=== PATIENT | male | born 1940 | race Caucasian/White ===

== ENCOUNTER → 2018-01-29 09:49 | Day surgery (SDC) | payer MEDICARE ==
[~2018-01-29 09:49] MED LIST: Diazepam TAB(*) 5 MG ONE; Heparin 2 UNITS/ML IVPREMIX* 2,000 ML IV ONE; Heparin(*) 1000 UNIT/ML 10 ML VIAL CATH LAB IV ONE; Iohexol 350 (CONTRAST) 200 ML MDV IV ONE; Lidocaine 1%* 5 ML VIAL ONE; Midazolam* 1 MG/ML 10 ML VIAL (10 MG) ONE; NS 0.9% 1000 ML* 1,000 ML IV SCH; Nitroglycerin TAB 0.4 MG* 0.4 MG TAB ONE; VERAPAMIL 2.5 MG/ML 2 ML VIAL ** 5 mg/2 ml ONE; fentaNYL* 50 MCG/ML 2 ML VIAL (100 MCG VIAL) ONE; nitroGLYCERIN DRIP* 0 MCG/0 ML BTL ONE
[2018-01-29 10:46] LABS: ABS Basophils 0.1 10^3/ul (0-0.2); ABS Eosinophils 0.3 10^3/ul (0-0.6); ABS Lymphocytes 1.8 10^3/ul (1.0-4.8); ABS Monocytes 0.6 10^3/ul (0-0.8); ABS Neutrophils 5.3 10^3/ul (1.5-7.7); ABS Nucleated RBC 0 10^3/ul; Eosinophil % 4.2 % (0-6); Hematocrit 42 % (42-52); Lymphocyte % 22.2 % (25-47); Mean Corpuscular HGB Conc 34 g/dl (31-36); Mean Corpuscular Hemoglobin 30 pg (27-31); Mean Corpuscular Volume 88 fL (80-94); Mean Platelet Volume 7.8 um3 (7.4-10.4); Nucleated Red Blood Cells % 0; Platelet Count 202 10^3/ul (150-450); Red Blood Count 4.72 10^6/ul (4.00-5.40); Red Cell Distribution Width 15 % (10.5-15); White Blood Count 8.2 10^3/ul (3.5-10.8)
[2018-01-29 10:59] LABS: INR 1.06 (0.77-1.02)
[2018-01-29 15:06] VITALS: BP 167/77
--- NOTE | 2018-01-30 02:29 | CATH ---
CC: Dr. Jennifer Diaz; Dr. Rakesh Miles.* CARDIAC CATHETERIZATION REPORT: DATE OF PROCEDURE: 01/29/18 - [facility] CATH PROCEDURE: Right heart catheterization, coronary angiography. INDICATION: Aortic stenosis. The patient is a 77-year-old gentleman with a history of aortic stenosis. The patient was recently diagnosed with chronic atrial fibrillation. A recent echocardiogram showed that his aortic stenosis is now severe. He has increased shortness of breath, aortic valve evaluation was recommended. DESCRIPTION OF PROCEDURE: The patient was brought to the cardiac catheterization lab in a fasting state. Informed consent had been obtained prior to the procedure. All labs were reviewed. His right radial wrist area and antecubital area were prepped and draped in usual fashion. 1% lidocaine was used for local anesthesia. The antecubital vein already had a previously existing IV. A guidewire was placed over the guidewire. A 5-Zimbabwean sheath introducer was placed. The patient underwent a right heart catheterization including multiple pressures in his right sided circulation. The right radial artery was entered by a modified Seldinger technique and a guidewire was placed , over the guidewire a 6-Zimbabwean hydrophilic sheath was placed. The patient underwent coronary angiography using a 6-[place] Ter[employer] View [place] 3.5 catheter was used to engage the left main artery and AR 1 catheter was used to engage the right coronary artery. At the end of the procedure, all the sheaths and catheters were removed. The patient tolerated the procedure well, no complications. A total of 100 cc of Omnipaque dye was used. A total of 14 minutes of fluoro time was used. FINDINGS: 1. Hemodynamics. Right atrial pressure with a mean of 9, right ventricular pressure of 32/2 with end diastolic pressure, a pulmonary artery pressure of 32/ 17, central aortic pressure of 140/66 with a mean of 94. 2. Coronary arteries, left main was normal inside, it had mild calcification, bifurcating the LAD and circumflex, there is no evidence of stenosis. 3. Left anterior descending artery: The LAD was normal in size. It gave off 2 diagonal vessels. There is mild coronary artery disease in the proximal LAD, the mid LAD had a 50% stenosis. The diagonal vessels had no evidence of disease. 4. Left circumflex artery. The circumflex artery was normal in size. It gave up 3 obtuse marginal branches and the PDA, it was a dominant vessel. There was mild calcification. There was no evidence of coronary artery disease in the obtuse marginal vessels. The distal left circumflex artery had a 60% stenosis before the PDA. 5. The right coronary artery, the RCA was a small non dominant vessel. IMPRESSION: 1. Normal right heart catheterization. 2. Mild coronary artery disease with 50% stenosis of the mid LAD and a 60% stenosis of the distal left circumflex artery just before the PDA. 3. Successful radial artery catheterization. RECOMMENDATION: The patient was reevaluated for aortic valve replacement. [id number]/[facility] #: [id number] [facility]
== END | disposition home or self-care (01) ==
LOC: CHICATH 09:49
PROVIDERS: ATTEND Specialist
DX: I35.0 Nonrheumatic aortic (valve) stenosis (principal); I25.10 Atherosclerotic heart disease of native coronary artery without angina pectoris; I48.4 Atypical atrial flutter; I10 Essential (primary) hypertension; R06.02 Shortness of breath; J44.9 Chronic obstructive pulmonary disease, unspecified; Z79.01 Long term (current) use of anticoagulants; Z85.828 Personal history of other malignant neoplasm of skin
CPT/HCPCS: 36415; 80048; 85025; 85610; 93456; 99156; 99157; A9270-GY; C1887; J1644; J2250; J3010

== ENCOUNTER 2020-08-20 04:45 | Inpatient (IN) ==
[2020-08-20] MEDS ORDERED: NS 0.9% 1000 ml BAG 1,000 ML IV ONE (06:16)
[2020-08-20 06:45] LABS: ABS Lymphocytes 1.1 10^3/ul (1.0-4.8); ABS Monocytes 1.3 10^3/ul (0-0.8); Eosinophil % 0.1 %; Hematocrit 41 % (42-52); Hemoglobin 13.7 g/dL (14.0-18.0); Lymphocyte % 8.5 %; Mean Corpuscular HGB Conc 33 g/dL (31-36); Mean Corpuscular Hemoglobin 30 pg (27-31); Mean Corpuscular Volume 90 fL (80-94); Mean Platelet Volume 7.9 fL (7.4-10.4); Platelet Count 158 10^3/uL (150-450); Red Blood Count 4.56 10^6 /uL (4.18-5.48); Red Cell Distribution Width 15 % (10-15); White Blood Count 13.4 10^3/uL (3.5-10.8)
[2020-08-20 06:52] LABS: INR 1.34 (0.82-1.09)
[2020-08-20 07:02] LABS: ALT 20 U/L (7-52); AST 26 U/L (13-39); Albumin 3.8 g/dL (3.2-5.2); Albumin/Globulin Ratio 1.2 (1-3); Alkaline Phosphatase 83 U/L (34-104); Anion Gap 9 mmol/L (2-11); BUN/Creatinine Ratio 17.9 (8-20); Blood Urea Nitrogen 19 mg/dL (6-24); C Reactive Protein 97.68 mg/L (<8.01); CO2 Carbon Dioxide 24 mmol/L (22-32); Calcium 9.1 mg/dL (8.6-10.3); Chloride 98 mmol/L (101-111); Creatine Kinase 601 U/L (10-223); EGFR African American 81.1 (>60); EGFR Non-African American 67.1 (>60); Globulin 3.2 g/dL (2-4); Glucose 210 mg/dL (70-100); Magnesium 1.5 mg/dL (1.9-2.7); Sodium 131 mmol/L (135-145)
[2020-08-20 07:26] LABS: Troponin I 0.04 ng/mL (<0.03)
[2020-08-20] MEDS ORDERED: Magnesium Sulfate 2 gm BAG 2 GM/50 ML BAG IVPB ONE (07:45)
[2020-08-20 07:50] LABS: TSH Ultra Thyroid Stim Horm 2.24 mcIU/mL (0.34-5.60)
[2020-08-20 09:05] LABS: Urine Appearance Clear; Urine Bilirubin Negative (Negative); Urine Blood Negative (Negative); Urine Color Amber; Urine Glucose 1+(50 mg/dL) (Negative); Urine Ketones Trace (Negative); Urine Nitrite Negative (Negative); Urine Protein 1+(30 mg/dL) (Negative); Urine Specific Gravity 1.028 (1.010-1.030); Urine Urobilinogen Negative (Negative)
[2020-08-20 09:18] LABS: Urine Bacteria Absent (Absent); Urine Red Blood Cell Trace(0-2/hpf) (Absent); Urine White Blood Cell Trace(0-5/hpf) (Absent)
[2020-08-20 09:30] LABS: Activated Partial Thrombo Time 25.5 seconds (26.0-38.0)
[2020-08-20] MEDS ORDERED: Albuterol HFA INHALER 8 gm MDI INH PRN (10:07)
[2020-08-20 10:36] LABS: Erythrocyte Sed Rate 36 mm/Hr (0-19)
[2020-08-20 10:49] LABS: Troponin I 0.04 ng/mL (<0.03)
[2020-08-20] MEDS: Insulin GLARGINE 100 un/ml 10 ml VIAL SUBCUT SCH (11:12)
[2020-08-20] MEDS ORDERED: Cyanocobalamin INJ 1,000 MCG/ML VIAL 1 ML VIAL IM ONE (13:00)
[2020-08-20] MEDS ORDERED: Perflutren Lipid Microsphere 3 ML VIAL ONE (13:30)
[2020-08-20 15:23] LABS: Troponin I 0.03 ng/mL (<0.03)
[2020-08-20 19:29] LABS: Troponin I 0.03 ng/mL (<0.03)
[2020-08-21 06:41] LABS: ABS Eosinophils 0.3 10^3/ul (0-0.6); ABS Lymphocytes 1.8 10^3/ul (1.0-4.8); ABS Neutrophils 6.7 10^3/ul (1.5-7.7); Eosinophil % 2.9 %; Hematocrit 40 % (42-52); Hemoglobin 13.4 g/dL (14.0-18.0); Lymphocyte % 18.2 %; Mean Corpuscular HGB Conc 34 g/dL (31-36); Mean Corpuscular Hemoglobin 30 pg (27-31); Mean Corpuscular Volume 90 fL (80-94); Mean Platelet Volume 7.9 fL (7.4-10.4); Platelet Count 147 10^3/uL (150-450); Red Blood Count 4.44 10^6 /uL (4.18-5.48); Red Cell Distribution Width 15 % (10-15); White Blood Count 9.7 10^3/uL (3.5-10.8)
[2020-08-21 07:00] LABS: BUN/Creatinine Ratio 18.2 (8-20); Calcium 8.7 mg/dL (8.6-10.3); EGFR African American 100.6 (>60); EGFR Non-African American 83.1 (>60); Magnesium 2.1 mg/dL (1.9-2.7); Potassium 3.7 mmol/L (3.5-5.0)
[2020-08-21 08:49] LABS: INR 1.19 (0.82-1.09)
[2020-08-21] MEDS: Insulin GLARGINE 100 un/ml 10 ml VIAL SUBCUT SCH (09:08)
[2020-08-21] MEDS ORDERED: Cyanocobalamin INJ 1,000 MCG/ML VIAL 1 ML VIAL IM ONE (09:40)
[2020-08-22] MEDS: Insulin GLARGINE 100 un/ml 10 ml VIAL SUBCUT SCH (09:06)
[2020-08-22 13:52] VITALS: BP 133/98
== END 2020-08-22 13:20 | disposition home or self-care (01) | DRG 552 ==
LOC: ED 04:45 → MEDTELE 09:10
PROVIDERS: ADMIT Internal Medicine; ATTEND Internal Medicine

== ENCOUNTER 2020-08-23 17:17 | Inpatient (IN) ==
[2020-08-23] MEDS ORDERED: NS 0.9% 1000 ml BAG 1,000 ML IV ONE (17:28)
[2020-08-23] MEDS ORDERED: ceFAZolin 1 GM ADVAN 1 GM in NS 0.9% 50 ML 50 ML IVPB ONE (17:29)
[2020-08-23 17:59] LABS: Hematocrit 38 % (42-52); Hemoglobin 12.8 g/dL (14.0-18.0); Mean Corpuscular HGB Conc 34 g/dL (31-36); Mean Corpuscular Hemoglobin 30 pg (27-31); Mean Corpuscular Volume 89 fL (80-94); Mean Platelet Volume 7.7 fL (7.4-10.4); Platelet Count 185 10^3/uL (150-450); Red Blood Count 4.29 10^6 /uL (4.18-5.48); Red Cell Distribution Width 15 % (10-15); White Blood Count 24.4 10^3/uL (3.5-10.8)
[2020-08-23 18:14] LABS: Influenza A Molecular Negative (Negative); Influenza B Molecular Negative (Negative)
[2020-08-23 18:16] LABS: ALT 113 U/L (7-52); AST 85 U/L (13-39); Albumin 3.3 g/dL (3.2-5.2); Alkaline Phosphatase 136 U/L (34-104); Anion Gap 8 mmol/L (2-11); BUN/Creatinine Ratio 16.4 (8-20); Blood Urea Nitrogen 18 mg/dL (6-24); CO2 Carbon Dioxide 25 mmol/L (22-32); Calcium 8.7 mg/dL (8.6-10.3); Chloride 95 mmol/L (101-111); EGFR African American 77.7 (>60); EGFR Non-African American 64.2 (>60); Globulin 3.4 g/dL (2-4); Glucose 291 mg/dL (70-100); Potassium 4.4 mmol/L (3.5-5.0); Sodium 128 mmol/L (135-145); Total Protein 6.7 g/dL (6.4-8.9)
[2020-08-23 18:20] LABS: ABS Basophils 0.1 10^3/ul (0-0.2); ABS Lymphocytes 0.6 10^3/ul (1.0-4.8); ABS Monocytes 1.8 10^3/ul (0-0.8); ABS Neutrophils 21.9 10^3/ul (1.5-7.7); Activated Partial Thrombo Time 26.6 seconds (26.0-38.0); INR 1.57 (0.82-1.09); Lymphocyte % 2.6 %
[2020-08-23] MEDS ORDERED: Ondansetron 4 mg VIAL 2 MG/ML 2 ml VIAL IV ONE (18:22)
[2020-08-23 18:23] LABS: Troponin I 0.04 ng/mL (<0.03)
[2020-08-23] MEDS ORDERED: NS 0.9% 1000 ml BAG 2,000 ML IV ONE (18:49)
[2020-08-23 19:31] LABS: Ferritin 269.3 ng/mL (24-336)
[2020-08-23] MEDS ORDERED: Ondansetron 4 mg VIAL 2 MG/ML 2 ml VIAL IV PRN (20:22)
[2020-08-23] MEDS ORDERED: Dextrose 50% Syringe 50 ml 25 GM/50 ML SYRINGE IV PUSH PRN (20:27)
[2020-08-23] MEDS ORDERED: metroNIDAZOLE IV 500 MG/100ML 500 MG/100 ML BAG IVPB ONE (20:32)
[2020-08-23] MEDS ORDERED: Cefepime ADVAN 1 GM in NS 0.9% 50 ML 50 ML IVPB ONE (20:32)
[2020-08-23] MEDS ORDERED: Iodixanol (CONTRAST) 320 MG/ML 100 ML SDV IV ONE (20:35)
[2020-08-23] MEDS ORDERED: Vancomycin 1,500 MG in NS 0.9% 250 ml 250 ML IVPB ONE (21:00)
[2020-08-23 22:16] LABS: Troponin I 0.04 ng/mL (<0.03)
[2020-08-24] MEDS: Enoxaparin 40 MG/0.4 ML SYR SUBCUT SCH ×2 (00:53→22:10)
[2020-08-24 01:42] LABS: Urine Appearance Clear; Urine Bilirubin Negative (Negative); Urine Blood Negative (Negative); Urine Color Amber; Urine Glucose 2+(150 mg/dL) (Negative); Urine Ketones Negative (Negative); Urine Nitrite Negative (Negative); Urine Protein Negative (Negative); Urine Urobilinogen Negative (Negative)
[2020-08-24 02:07] LABS: Urine Specific Gravity > 1.050 (1.010-1.030)
[2020-08-24] MEDS ORDERED: Vancomycin per Pharmacy 1 EA NOTE FOLLOW UP PRN (03:11)
[2020-08-24 06:00] LABS: Hematocrit 37 % (42-52); Hemoglobin 12.2 g/dL (14.0-18.0); Mean Corpuscular HGB Conc 33 g/dL (31-36); Mean Corpuscular Hemoglobin 30 pg (27-31); Mean Corpuscular Volume 90 fL (80-94); Mean Platelet Volume 7.6 fL (7.4-10.4); Platelet Count 165 10^3/uL (150-450); Red Cell Distribution Width 15 % (10-15); White Blood Count 22.9 10^3/uL (3.5-10.8)
[2020-08-24 06:07] LABS: ABS Eosinophils 0.1 10^3/ul (0-0.6); ABS Lymphocytes 0.7 10^3/ul (1.0-4.8); ABS Monocytes 1.3 10^3/ul (0-0.8); ABS Neutrophils 20.8 10^3/ul (1.5-7.7); Eosinophil % 0.3 %; Lymphocyte % 3.1 %
[2020-08-24 06:11] LABS: INR 1.68 (0.82-1.09)
[2020-08-24 06:16] LABS: Albumin 3.1 g/dL (3.2-5.2); Albumin/Globulin Ratio 0.9 (1-3); BUN/Creatinine Ratio 17.5 (8-20); C Reactive Protein 160.66 mg/L (<8.01); Calcium 8.3 mg/dL (8.6-10.3); EGFR African American 89.9 (>60); EGFR Non-African American 74.3 (>60); Globulin 3.3 g/dL (2-4); Potassium 4.1 mmol/L (3.5-5.0); Total Bilirubin 1.9 mg/dL (0.2-1.0); Total Protein 6.4 g/dL (6.4-8.9)
[2020-08-24] MEDS: Albuterol HFA INHALER 8 gm MDI INH PRN (08:14)
[2020-08-24] MEDS: Insulin GLARGINE 100 un/ml 10 ml VIAL SUBCUT SCH (08:36)
[2020-08-24] MEDS ORDERED: Vancomycin 1000 MG in NS 0.9% 250 ML IVPB SCH (11:00)
[2020-08-24] MEDS: Mometasone/Formoter 100/5 MDI INH SCH ×2 (11:08→19:06)
[2020-08-24] MEDS: cefTRIAXone 1 gm/50 mL NS BAG 1 GM/50 ML BAG IVPB SCH (22:09)
[2020-08-25 06:42] LABS: ABS Basophils 0.1 10^3/ul (0-0.2); ABS Eosinophils 0.5 10^3/ul (0-0.6); ABS Lymphocytes 1.2 10^3/ul (1.0-4.8); ABS Monocytes 0.9 10^3/ul (0-0.8); ABS Neutrophils 15.5 10^3/ul (1.5-7.7); Eosinophil % 2.8 %; Hematocrit 32 % (42-52); Hemoglobin 10.7 g/dL (14.0-18.0); Lymphocyte % 6.7 %; Mean Corpuscular HGB Conc 33 g/dL (31-36); Mean Corpuscular Hemoglobin 30 pg (27-31); Mean Corpuscular Volume 89 fL (80-94); Mean Platelet Volume 7.7 fL (7.4-10.4); Platelet Count 153 10^3/uL (150-450); Red Blood Count 3.62 10^6 /uL (4.18-5.48); Red Cell Distribution Width 15 % (10-15); White Blood Count 18.3 10^3/uL (3.5-10.8)
[2020-08-25 06:55] LABS: INR 1.52 (0.82-1.09)
[2020-08-25 07:03] LABS: Albumin 2.7 g/dL (3.2-5.2); Albumin/Globulin Ratio 0.9 (1-3); BUN/Creatinine Ratio 16.5 (8-20); EGFR African American 89.9 (>60); EGFR Non-African American 74.3 (>60); Globulin 2.9 g/dL (2-4); Potassium 3.7 mmol/L (3.5-5.0); Total Bilirubin 1.1 mg/dL (0.2-1.0); Total Protein 5.6 g/dL (6.4-8.9)
[2020-08-25] MEDS: Mometasone/Formoter 100/5 MDI INH SCH ×2 (07:40→19:24)
[2020-08-25] MEDS: Albuterol HFA INHALER 8 gm MDI INH PRN ×2 (07:42→15:54)
[2020-08-25] MEDS: Insulin GLARGINE 100 un/ml 10 ml VIAL SUBCUT SCH (09:00)
[2020-08-25 09:43] LABS: EGFR African American 92.1 (>60); EGFR Non-African American 76.1 (>60)
[2020-08-25] MEDS ORDERED: Vancomycin Trough Check NOTE FOLLOW UP ONE (10:30)
[2020-08-25] MEDS ORDERED: Senna TAB 8.6 mg TAB PO PRN (19:57)
[2020-08-25] MEDS: cefTRIAXone 1 gm/50 mL NS BAG 1 GM/50 ML BAG IVPB SCH (21:10)
[2020-08-25] MEDS: Magnesium Hydroxide LIQ 30 ML UDC PO SCH (21:19)
[2020-08-25] MEDS: Enoxaparin 40 MG/0.4 ML SYR SUBCUT SCH (21:20)
[2020-08-26 06:19] LABS: ABS Eosinophils 0.4 10^3/ul (0-0.6); ABS Lymphocytes 1.1 10^3/ul (1.0-4.8); ABS Monocytes 1.1 10^3/ul (0-0.8); ABS Neutrophils 11.6 10^3/ul (1.5-7.7); Hematocrit 32 % (42-52); Lymphocyte % 7.9 %; Mean Corpuscular HGB Conc 34 g/dL (31-36); Mean Corpuscular Hemoglobin 30 pg (27-31); Mean Corpuscular Volume 88 fL (80-94); Platelet Count 187 10^3/uL (150-450); Red Blood Count 3.64 10^6 /uL (4.18-5.48); Red Cell Distribution Width 14 % (10-15); White Blood Count 14.2 10^3/uL (3.5-10.8)
[2020-08-26] MEDS: Mometasone/Formoter 100/5 MDI INH SCH ×2 (07:47→19:47)
[2020-08-26] MEDS: Magnesium Hydroxide LIQ 30 ML UDC PO SCH ×2 (09:33→21:19)
[2020-08-26] MEDS: Insulin GLARGINE 100 un/ml 10 ml VIAL SUBCUT SCH (09:33)
[2020-08-26] MEDS ORDERED: Cyanocobalamin INJ 1,000 MCG/ML VIAL 1 ML VIAL IM ONE (14:00)
[2020-08-26] MEDS: Enoxaparin 40 MG/0.4 ML SYR SUBCUT SCH (21:18)
[2020-08-26] MEDS: cefTRIAXone 1 gm/50 mL NS BAG 1 GM/50 ML BAG IVPB SCH (21:18)
[2020-08-27 08:36] LABS: ABS Eosinophils 0.3 10^3/ul (0-0.6); ABS Lymphocytes 1.4 10^3/ul (1.0-4.8); ABS Neutrophils 9.9 10^3/ul (1.5-7.7); Eosinophil % 2.2 %; Hematocrit 33 % (42-52); Hemoglobin 11.1 g/dL (14.0-18.0); Lymphocyte % 11.1 %; Mean Corpuscular HGB Conc 34 g/dL (31-36); Mean Corpuscular Hemoglobin 30 pg (27-31); Mean Corpuscular Volume 90 fL (80-94); Mean Platelet Volume 7.6 fL (7.4-10.4); Platelet Count 217 10^3/uL (150-450); Red Blood Count 3.71 10^6 /uL (4.18-5.48); Red Cell Distribution Width 14 % (10-15); White Blood Count 12.7 10^3/uL (3.5-10.8)
[2020-08-27] MEDS: Mometasone/Formoter 100/5 MDI INH SCH ×2 (08:43→19:45)
[2020-08-27 08:54] LABS: BUN/Creatinine Ratio 14.1 (8-20); Calcium 8.1 mg/dL (8.6-10.3); EGFR African American 104.7 (>60); EGFR Non-African American 86.5 (>60); Magnesium 2.1 mg/dL (1.9-2.7); Potassium 3.6 mmol/L (3.5-5.0)
[2020-08-27] MEDS: Magnesium Hydroxide LIQ 30 ML UDC PO SCH ×2 (10:02→21:04)
[2020-08-27] MEDS: Insulin GLARGINE 100 un/ml 10 ml VIAL SUBCUT SCH (10:03)
[2020-08-27] MEDS: Enoxaparin 40 MG/0.4 ML SYR SUBCUT SCH (21:04)
[2020-08-28] MEDS: Mometasone/Formoter 100/5 MDI INH SCH (07:35)
[2020-08-28] MEDS ORDERED: Cyanocobalamin INJ 1,000 MCG/ML VIAL 1 ML VIAL IM SCH (09:00)
[2020-08-28] MEDS: Insulin GLARGINE 100 un/ml 10 ml VIAL SUBCUT SCH (09:49)
[2020-08-28] MEDS: Magnesium Hydroxide LIQ 30 ML UDC PO SCH (09:49)
[2020-08-28] MEDS: Albuterol HFA INHALER 8 gm MDI INH PRN (11:35)
[2020-08-28 12:00] VITALS: BP 133/55
== END 2020-08-28 12:55 | disposition swing bed (61) | DRG 872 ==
LOC: MED 17:17 → ED 17:17 → MED 23:30
PROVIDERS: ADMIT Internal Medicine; ATTEND Pediatrics

== ENCOUNTER 2022-05-18 16:45 | Observation (INO) ==
[2022-05-18 17:49] LABS: ABS Eosinophils 0.3 10^3/ul (0-0.6); ABS Lymphocytes 0.6 10^3/ul (1.0-4.8); ABS Monocytes 0.8 10^3/ul (0-0.8); ABS Neutrophils 6.7 10^3/ul (1.5-7.7); Hematocrit 43 % (42-52); Mean Corpuscular HGB Conc 33 g/dL (31-36); Mean Corpuscular Hemoglobin 30 pg (27-31); Mean Corpuscular Volume 90 fL (80-94); Mean Platelet Volume 7.7 fL (7.4-10.4); Platelet Count 137 10^3/uL (150-450); Red Blood Count 4.74 10^6 /uL (4.18-5.48); Red Cell Distribution Width 15 % (10-15); White Blood Count 8.3 10^3/uL (3.5-10.8)
[2022-05-18 18:37] LABS: Albumin 3.7 g/dL (3.2-5.2); Anion Gap 5 mmol/L (2-11); CO2 Carbon Dioxide 28 mmol/L (22-32); Chloride 103 mmol/L (101-111); Potassium 4.3 mmol/L (3.5-5.0); Sodium 136 mmol/L (135-145)
[2022-05-18 18:43] LABS: ALT 17 U/L (7-52); AST 18 U/L (13-39); Albumin/Globulin Ratio 1.2 (1-3); Alkaline Phosphatase 105 U/L (35-149); Blood Urea Nitrogen 18 mg/dL (6-24); Glucose 114 mg/dL (70-100); Total Protein 6.7 g/dL (6.4-8.9); eGFR CKD-EPI 73.8 (>60)
[2022-05-18 20:21] LABS: High Sensitivity Troponin 1 Hr 10 pg/mL (<20)
[2022-05-18] MEDS ORDERED: Albuterol HFA INHALER 8 gm MDI INH PRN (21:47)
[2022-05-18 22:38] LABS: Alcohol, S < 13 mg/dL (<13)
[2022-05-18] MEDS ORDERED: Remdesivir 100 mg Vial 200 MG in NS 0.9% 250 ml 210 ML IV ONE (22:49)
[2022-05-18 22:50] LABS: TSH Ultra Thyroid Stim Horm 1.88 mcIU/mL (0.34-5.60)
[2022-05-18 23:01] LABS: Vitamin B12 937 pg/mL (180-914)
[2022-05-19 00:37] LABS: INR 1.48 (0.89-1.11)
[2022-05-19 00:39] LABS: Urine Appearance Clear; Urine Bilirubin Negative (Negative); Urine Blood Negative (Negative); Urine Color Yellow; Urine Glucose Negative (Negative); Urine Ketones Trace (Negative); Urine Nitrite Negative (Negative); Urine Protein Negative (Negative); Urine Specific Gravity 1.028 (1.002-1.030); Urine Urobilinogen Negative (Negative)
[2022-05-19 05:39] LABS: INR 1.41 (0.89-1.11)
[2022-05-19 06:19] LABS: Calcium 9.1 mg/dL (8.6-10.3); eGFR CKD-EPI 66.6 (>60)
[2022-05-19] MEDS: Insulin GLARGINE 100 un/ml 10 ml VIAL SUBCUT SCH (09:00)
[2022-05-19] MEDS: FLUOROURACIL 5% TOPICAL SCH (09:53)
[2022-05-19] MEDS: Amoxicillin/Clavul 500/125 TAB (Augmentin 500 mg tab) PO SCH (19:46)
[2022-05-19] MEDS ORDERED: Remdesivir 100 mg Q24H MAINTENANCE DOSING IV SCH (21:00)
[2022-05-20 07:19] LABS: INR 1.78 (0.89-1.11)
[2022-05-20 07:48] LABS: Calcium 8.8 mg/dL (8.6-10.3); Magnesium 1.9 mg/dL (1.9-2.7); Phosphorus 4.4 mg/dL (2.5-5.0); Potassium 4.3 mmol/L (3.5-5.0); eGFR CKD-EPI 73.8 (>60)
[2022-05-20] MEDS: Insulin GLARGINE 100 un/ml 10 ml VIAL SUBCUT SCH (09:57)
[2022-05-20] MEDS: Amoxicillin/Clavul 500/125 TAB (Augmentin 500 mg tab) PO SCH (09:58)
[2022-05-20] MEDS: FLUOROURACIL 5% TOPICAL SCH (09:59)
[2022-05-20 12:08] VITALS: BP 128/82
[2022-06-12] MEDS ORDERED: Cyanocobalamin INJ 1,000 MCG/ML VIAL 1 ML VIAL IM SCH (09:00)
== END 2022-05-20 13:40 | disposition home or self-care (01) ==
LOC: EDHOLD 16:45 → ED 16:45 → SUATTDRO 21:14 → MED 05-19 18:03
PROVIDERS: ADMIT Student in an Organized Health Care Education/Training Program; ATTEND Internal Medicine